=== PATIENT | female | born 1955 | race Caucasian/White ===

== ENCOUNTER 2021-11-05 20:18 | Emergency (ER) | payer MEDICARE, BC ==
--- NOTE | 2021-11-05 20:21 | ERPHSYRPT ---
- History of Present Illness Time Seen by Provider: 11/05/21 20:20 Source: patient Exam Limitations: no limitations Physician History: This is a 66-year-old white female patient of Dr. Kain Nolan who noticed some vaginal stinging yesterday. She drank cranberry juice and a lot of fluids and today she stated that she is having more dysuria and frequent urination. Later in the afternoon and evening she has used the restroom to urinate several times and there is a large "gush" of blood present on a few of these episodes. Patient does not feel dizzy. She does not feel short of breath. Patient has had a hysterectomy in the past and a unilateral salpingo-oophorectomy. She takes no medications chronically. She is allergic to tetracycline. She denies flank pain. She does complain of some suprapubic tenderness and pressure. Timing/Duration: yesterday Activites at Onset: none Quality: burning, cramping, pressure Onset Location: suprapubic Pain Radiation: suprapubic Severity of Pain-Max: mild Severity of Pain-Current: mild Sexual intercourse history: non-contributory Modifying Factors: Improves With: urinating Associated Symptoms: dysuria, urinary frequency, vaginal discharge (Blood) Allergies/Adverse Reactions: tetracycline Allergy (Unknown, Verified 11/05/21 20:24) gluten Allergy (Verified 11/05/21 20:24) lactase [From Dairy Aid] Allergy (Verified 11/05/21 20:24) Hx Tetanus, Diphtheria Vaccination/Date Given: No Hx Influenza Vaccination/Date Given: No Hx Pneumococcal Vaccination/Date Given: No Travel Risk - International Travel Have you traveled outside of the country in past 3 weeks: No - Coronavirus Screening Are you exhibiting any of the following symptoms?: No Close contact with a COVID-19 positive Pt in past 14-21 Days: No - Review of Systems Constitutional: No Symptoms Eyes: No Symptoms Ears, Nose, & Throat: No Symptoms Respiratory: No Symptoms Cardiac: No Symptoms Abdominal/Gastrointestinal: Abdominal Pain (Prepubic cramping and pressure) Genitourinary Symptoms: Dysuria, Frequency, Hematuria Musculoskeletal: No Symptoms Skin: No Symptoms Neurological: No Symptoms Psychological: No Symptoms Endocrine: No Symptoms Hematologic/Lymphatic: No Symptoms Immunological/Allergic: No Symptoms All Other Systems: Reviewed and Negative - Past Medical History Pertinent Past Medical History: Yes Neurological History: No Pertinent History ENT History: No Pertinent History Cardiac History: No Pertinent History Respiratory History: No Pertinent History - Past Surgical History Past Surgical History: Yes Female Surgical History: Hysterectomy - Social History Smoking Status: Former smoker Exposure to second hand smoke: No Drug Use: none Patient Lives Alone: No - Nursing Vital Signs Nursing Vital Signs: Initial Vital Signs Temperature 98.2 F 11/05/21 20:25 Pulse Rate 114 H 11/05/21 20:25 Respiratory Rate 16 11/05/21 20:25 Blood Pressure 177/96 11/05/21 20:25 O2 Sat by Pulse Oximetry 96 11/05/21 20:25 Pain Scale Pain Intensity 8 - Physical Exam General Appearance: no apparent distress, alert, anxiety Eye Exam: PERRL/EOMI, eyes nml inspection Ears, Nose, Throat Exam: normal ENT inspection, moist mucous membranes Neck Exam: normal inspection, non-tender, supple, full range of motion Respiratory Exam: normal breath sounds, lungs clear, airway intact, No chest tenderness, No respiratory distress Cardiovascular Exam: regular rate/rhythm, normal heart sounds, normal peripheral pulses Gastrointestinal/Abdomen Exam: soft, normal bowel sounds, tenderness (Prepubic region), guarding, No rebound Pelvic Exam: not done Rectal Exam: not done Back Exam: normal inspection, normal range of motion, No CVA tenderness, No vertebral tenderness Extremity Exam: normal inspection, normal range of motion, pelvis stable Neurologic Exam: alert, oriented x 3, cooperative, project portfolio analyst II-XII nml as tested, normal mood/affect, nml cerebellar function, nml station & gait, sensation nml Skin Exam: normal color, warm, dry Lymphatic Exam: No adenopathy SpO2 Interpretation: normal O2 Delivery: Room Air - Course Nursing assessment & vital signs reviewed: Yes Ordered Tests: Active Orders 24 hr Category Date Time Status Meyer [Catheter-[place] Meyer] STAT Care 11/05/21 20:27 Active IV Insertion STAT Care 11/05/21 20:26 Active ABDOMEN AND PELVIS W/0 CONTRAS [CT] Stat Exams 11/05/21 20:27 Completed AMYLASE Stat Lab 11/05/21 20:46 Completed BLOOD CULTURE Stat Lab 11/05/21 20:47 Received CBC W DIFF Stat Lab 11/05/21 20:46 Completed CMP Stat Lab 11/05/21 20:46 Completed CULTURE,URINE Stat Lab 11/05/21 20:39 Received LIPASE Stat Lab 11/05/21 20:46 Completed Lactic Acid Stat Lab 11/05/21 20:26 Completed UA W/RFX UR CULTURE Stat Lab 11/05/21 20:39 Completed Medication Summary Discontinued Medications Generic Name Dose Route Start Last Admin Trade Name Darren PRN Reason Stop Dose Admin Sodium Chloride 1,000 mls @ 999 mls/hr 11/05/21 20:26 11/05/21 21:50 Sodium Chloride 0.9% 1000 Ml IV 11/05/21 21:26 Infused .Q1H1M STA Infusion Sodium Chloride Confirm 11/05/21 20:42 Sodium Chloride 0.9% 1000 Ml Administered 11/05/21 20:43 Dose 1,000 mls @ ud .ROUTE .STK-MED ONE Ceftriaxone Sodium/Dextrose 1 g in 50 mls @ 100 mls/hr 11/05/21 21:28 11/05/21 22:05 Rocephin 1 Gm-D5w 50 Ml Bag IV 11/05/21 21:57 Infused STAT STA Infusion Ceftriaxone Sodium/Dextrose Confirm 11/05/21 21:35 Rocephin 1 Gm-D5w 50 Ml Bag Administered 11/05/21 21:36 Dose 1 g in 50 mls @ ud IV .STK-MED ONE Oxybutynin Chloride 5 mg 11/05/21 21:21 11/05/21 21:36 Oxybutynin Chloride 5 Mg Tablet PO 11/05/21 21:22 5 mg STAT ONE Administration Phenazopyridine HCl 200 mg 11/05/21 20:28 11/05/21 20:42 Phenazopyridine Hcl 200 Mg Tablet PO 11/05/21 20:29 200 mg STAT ONE Administration Phenazopyridine HCl Confirm 11/05/21 20:42 Phenazopyridine Hcl 200 Mg Tablet Administered 11/05/21 20:43 Dose 200 mg .ROUTE .STK-MED ONE Lab/Rad Data: Laboratory Result Diagrams 11/05/21 20:46 11/05/21 20:46 Laboratory Results 11/05/21 11/05/21 11/05/21 Range/Units 20:46 20:46 20:39 WBC 15.7 H (4.0-10.5) K/mm3 RBC 4.90 (4.1-5.4) M/mm3 Hgb 15.1 (12.0-16.0) gm/dl Hct 46.5 (35-47) % MCV 94.9 (78-100) fl MCH 30.8 (26-32) pg MCHC 32.5 (32-36) g/dl RDW 13.6 (11.5-14.0) % Plt Count 306 (150-450) K/mm3 MPV 10.0 (7.5-11.0) fl Gran % 86.8 H (36.0-66.0) % Eos # (Auto) 0.04 (0-0.5) Absolute Lymphs (auto) 1.15 (1.0-4.6) Absolute Monos (auto) 0.86 (0.0-1.3) Lymphocytes % 7.3 L (24.0-44.0) % Monocytes % 5.5 (0.0-12.0) % Eosinophils % 0.3 (0.00-5.0) % Basophils % 0.1 (0.0-0.4) % Absolute Granulocytes 13.63 H (1.4-6.9) Basophils # 0.02 (0-0.4) Sodium 143 (137-145) mmol/L Potassium 4.0 (3.5-5.1) mmol/L Chloride 109 H (98-107) mmol/L Carbon Dioxide 23 (22-30) mmol/L Anion Gap 15.1 H (5-15) MEQ/L BUN 7 (7-17) mg/dL Creatinine 0.64 (0.52-1.04) mg/dL Estimated GFR > 60.0 ML/MIN Glucose 103 (74-106) mg/dL Lactic Acid (0.4-2.0) Calcium 9.6 (8.4-10.2) mg/dL Total Bilirubin 0.50 (0.2-1.3) mg/dL AST 30 (14-36) U/L ALT 26 (0-35) U/L Alkaline Phosphatase 79 (38-126) U/L Serum Total Protein 7.9 (6.3-8.2) g/dL Albumin 4.8 (3.5-5.0) g/dL Amylase 66 (30-110) U/L Lipase 149 (23-300) U/L Urine Color YELLOW (YELLOW) Urine Appearance CLOUDY (CLEAR) Urine pH 5.0 (5-6) Ur Specific [place] 1.014 (1.005-1.025) Urine Protein 100 (Negative) Urine Ketones NEGATIVE (NEGATIVE) Urine Blood LARGE (0-5) [place]/ul Urine Nitrite NEGATIVE (NEGATIVE) Urine Bilirubin NEGATIVE (NEGATIVE) Urine Urobilinogen NEGATIVE (0-1) mg/dL Ur Leukocyte Esterase MODERATE (NEGATIVE) Urine WBC (Auto) 26-50 (0-5) /HPF Urine RBC (Auto) >101 (0-2) /HPF U Epithel Cells (Auto) NONE (FEW) /HPF Urine Bacteria (Auto) RARE (NEGATIVE) /HPF U Non-Squamous Epi Cells RARE (FEW) /HPF Urine Mucus (Auto) SLIGHT (NEGATIVE) /HPF Urine Culture Reflexed ORDERED SEPARATELY (NO) Urine Glucose NEGATIVE (NEGATIVE) mg/dL 11/05/21 Range/Units 20:26 WBC (4.0-10.5) K/mm3 RBC (4.1-5.4) M/mm3 Hgb (12.0-16.0) gm/dl Hct (35-47) % MCV (78-100) fl MCH (26-32) pg MCHC (32-36) g/dl RDW (11.5-14.0) % Plt Count (150-450) K/mm3 MPV (7.5-11.0) fl Gran % (36.0-66.0) % Eos # (Auto) (0-0.5) Absolute Lymphs (auto) (1.0-4.6) Absolute Monos (auto) (0.0-1.3) Lymphocytes % (24.0-44.0) % Monocytes % (0.0-12.0) % Eosinophils % (0.00-5.0) % Basophils % (0.0-0.4) % Absolute Granulocytes (1.4-6.9) Basophils # (0-0.4) Sodium (137-145) mmol/L Potassium (3.5-5.1) mmol/L Chloride (98-107) mmol/L Carbon Dioxide (22-30) mmol/L Anion Gap (5-15) MEQ/L BUN (7-17) mg/dL Creatinine (0.52-1.04) mg/dL Estimated GFR ML/MIN Glucose (74-106) mg/dL Lactic Acid 2.4 H (0.4-2.0) Calcium (8.4-10.2) mg/dL Total Bilirubin (0.2-1.3) mg/dL AST (14-36) U/L ALT (0-35) U/L Alkaline Phosphatase (38-126) U/L Serum Total Protein (6.3-8.2) g/dL Albumin (3.5-5.0) g/dL Amylase (30-110) U/L Lipase (23-300) U/L Urine Color (YELLOW) Urine Appearance (CLEAR) Urine pH (5-6) Ur Specific [place] (1.005-1.025) Urine Protein (Negative) Urine Ketones (NEGATIVE) Urine Blood (0-5) [place]/ul Urine Nitrite (NEGATIVE) Urine Bilirubin (NEGATIVE) Urine Urobilinogen (0-1) mg/dL Ur Leukocyte Esterase (NEGATIVE) Urine WBC (Auto) (0-5) /HPF Urine RBC (Auto) (0-2) /HPF U Epithel Cells (Auto) (FEW) /HPF Urine Bacteria (Auto) (NEGATIVE) /HPF U Non-Squamous Epi Cells (FEW) /HPF Urine Mucus (Auto) (NEGATIVE) /HPF Urine Culture Reflexed (NO) Urine Glucose (NEGATIVE) mg/dL - Progress Progress: improved, re-examined Air Movement: good Progress Note: 11/05/21 22:16 CAT scan of the abdomen and pelvis shows a subcentimeter left lower lobe spicul ated nodules. This is concerning for malignancy. In addition there is small sclerotic lesions of the visualized spine and right innominate bone. These findings were discussed in detail with the patient. She is aware she needs to contact Dr. Kain Nolan on 11/08/2021 for further management. Medical decision making: This patient was offered to keep her Meyer catheter in place because she was having dysuria, urinary frequency and bladder spasms. After long discussion, she has opted to have it removed. The patient will receive an outpatient prescription for antibiotics, Ditropan and Pyridium. We will provide her with 2 take-home [place] 5/325 tablets Blood Culture(s) Obtained: Yes Antibiotics given: Yes Counseled pt/family regarding: lab results, diagnosis, need for follow-up, rad results - Departure Departure Disposition: Home Clinical Impression: UTI (urinary tract infection) Condition: Stable Critical Care Time: No Referrals: THOMAS GONZALEZ [Primary Care Provider] - Follow up/PCP as directed Additional Instructions: Drink plenty of fluids. Take your medication as prescribed. Call Dr. Kain Nolan's office on 11/08/2021, for further evaluation and management of your current condition as well as those left lower lung CAT scan findings and the findings on the bony elements we discussed. Prescriptions: Levofloxacin [Levaquin 500 MG Tablet] 500 mg PO DAILY #7 tablet Oxybutynin Chloride 5 mg PO TID #15 tablet Phenazopyridine HCl 200 mg [Pyridium 200 mg] 200 mg PO TID #6 tablet
[2021-11-05] MEDS ORDERED: Sodium Chloride 0.9% 1000 ML 1,000 ML IV STA (20:26)
[2021-11-05] MEDS ORDERED: PYRIDIUM 200 MG PO ONE (20:28)
[2021-11-05] MEDS ORDERED: PYRIDIUM 200 MG ONE (20:42)
[2021-11-05] MEDS ORDERED: Sodium Chloride 0.9% 1000 ML 1,000 ML ONE (20:42)
[2021-11-05 20:51] LABS: Absolute Neutrophil Ct (ANC) 13.63 (1.4-6.9); Basophil (Absolute #) 0.02 (0-0.4); Eosinophil % 0.3 % (0.00-5.0); Eosinophil (Absolute #) 0.04 (0-0.5); Hematocrit 46.5 % (35-47); Hemoglobin 15.1 gm/dl (12.0-16.0); Lymphocyte (Absolute #) 1.15 (1.0-4.6); Lymphocytes % 7.3 % (24.0-44.0); Mean Cell Volume 94.9 fl (78-100); Mean Corpuscular Hemoglobin 30.8 pg (26-32); Mean Corpuscular Hgb Concent. 32.5 g/dl (32-36); Monocyte (Absolute #) 0.86 (0.0-1.3); Monocytes % 5.5 % (0.0-12.0); Neutrophil % 86.8 % (36.0-66.0); Platelet Count 306 K/mm3 (150-450); Red Cell Distribution Width 13.6 % (11.5-14.0); White Blood Count 15.7 K/mm3 (4.0-10.5)
[2021-11-05 21:05] LABS: ALBUMIN 4.8 g/dL (3.5-5.0); ALKALINE PHOSPHATASE 79 U/L (38-126); AMYLASE 66 U/L (30-110); ANION GAP 15.1 MEQ/L (5-15); BLOOD UREA NITROGEN 7 mg/dL (7-17); CHLORIDE 109 mmol/L (98-107); Calcium 9.6 mg/dL (8.4-10.2); Carbon Dioxide 23 mmol/L (22-30); Creatinine 1 0.64 mg/dL (0.52-1.04); EST GLOMERULAR FILTRATION RATE > 60.0 ML/MIN; Glucose 103 mg/dL (74-106); LIPASE 149 U/L (23-300); SGOT/AST 30 U/L (14-36); SGPT/ALT 26 U/L (0-35); SODIUM 143 mmol/L (137-145); Total Protein 7.9 g/dL (6.3-8.2)
[2021-11-05 21:06] LABS: Appearance CLOUDY (CLEAR); Bacteria RARE /HPF (NEGATIVE); Bilirubin NEGATIVE (NEGATIVE); Blood LARGE Ery/ul (0-5); Glucose NEGATIVE (NEGATIVE); Ketones NEGATIVE (NEGATIVE); Leukocyte Esterase MODERATE (NEGATIVE); Mucus SLIGHT /HPF (NEGATIVE); Nitrite NEGATIVE (NEGATIVE); Non-Squamous Epithelial Cells RARE /HPF (FEW); Protein,Urine Dip 100 (Negative); RBC >101 /HPF (0-2); Specific Gravity 1.014 (1.005-1.025); Urobilinogen NEGATIVE mg/dL (0-1); WBC 26-50 /HPF (0-5)
[2021-11-05] MEDS ORDERED: Ditropan 5 MG PO ONE (21:21)
[2021-11-05] MEDS ORDERED: ROCEPHIN 1 Gm-D5w 50 ml Bag** 1 G/50 ML IVPB IV STA (21:28)
[2021-11-05] MEDS ORDERED: ROCEPHIN 1 Gm-D5w 50 ml Bag** 1 G/50 ML IVPB IV ONE (21:35)
--- NOTE | 2021-11-05 21:47 | XRAY ---
Indication: Suprapubic pain. Dysuria. Hematuria. Multiple contiguous axial images obtained through the abdomen and pelvis without contrast using renal stone protocol. Comparison: None Lung bases demonstrates minimal dependent atelectasis. Posterior medial left lower lobe demonstrates 2 subcentimeter spiculated noncalcified nodules. Heart not enlarged. Small hiatal hernia. No renal calculus or evidence for obstructive uropathy in either system. Near empty urinary bladder demonstrates Meyer balloon catheter in situ. Previous hysterectomy. No free fluid/air. Noncontrasted stomach and bowel loops appear nonobstructed. Normal appendix. Remaining liver, gallbladder, pancreas, spleen, adrenal glands, kidneys, and ureters are unremarkable for noncontrast exam. Mild scattered aortoiliac calcifications without AAA. Osseous structures intact with mild osteopenia and mild degenerative changes throughout the spine. T12/L3/S1/S2 vertebral bodies demonstrate sclerotic lesions, largest L3 measuring 1.2 cm. Tiny 4 mm right innominate bone sclerotic lesion adjacent to the SI joint. Osteoblastic malignancy is of primary concern. Impression: 1. Negative renal calculus or evidence for obstructive uropathy. 2. Subcentimeter left lower lobe spiculated nodules concerning for malignancy. Findings too small for PET/CT. Outside comparison studies recommended if available. 3. A few small sclerotic lesions of the visualized spine and right innominate bone. Rule out osteoblastic malignancy. 4. Incidental small hiatal hernia, Meyer balloon catheter in situ, osteopenia, and degenerative spondylosis.
[2021-11-05] MEDS ORDERED: NORCO 5/325 MG PO ONE (22:31)
[2021-11-05] MEDS ORDERED: NORCO 5/325 MG ONE (22:38)
[2021-11-05 22:50] VITALS: BP 146/76; PULSE 80; O2SAT 95
== END 2021-11-05 22:52 | disposition home or self-care (01) ==
LOC: ED 20:18
DX: N39.0 Urinary tract infection, site not specified (principal); R31.0 Gross hematuria; R30.0 Dysuria; R35.0 Frequency of micturition; R10.2 Pelvic and perineal pain; Z90.710 Acquired absence of both cervix and uterus
CPT/HCPCS: 36000; 36415; 51702; 74176; 80053; 81001; 82150; 83605; 83690; 85025; 87040; 87077; 87086; 87186; 99284; J0696; A9270-GY